=== PATIENT | male | born 1960 | race Caucasian/White ===

== ENCOUNTER 2017-05-30 13:59 | Observation (INO) | payer OTHER ==
[~2017-05-30] VITALS: Ht 185.4 cm; Wt 93.9 kg
[2017-05-30] MEDS ORDERED: HYDROmorphone 2 MG/ML, 1ML ONE ×2 (15:40→18:44)
[2017-05-30] MEDS ORDERED: ONDANSETRON 2MG/ML, 2ML ONE ×2 (15:40→19:05)
[2017-05-30] MEDS: HYDROmorphone 1 MG/ML, 1ML IVPush PRN ×2 (15:48→18:47)
[2017-05-30] MEDS ORDERED: SODIUM CHLORIDE 0.9% 1,000ML IVBOLUS ONE (16:00)
[2017-05-30] MEDS ORDERED: ONDANSETRON 2MG/ML, 2ML IVPush ONE (16:00)
[2017-05-30] MEDS ORDERED: SODIUM CHLORIDE FLUSH 10ML SYR IVF ONE (16:00)
[2017-05-30 16:10] LABS: HEMATOCRIT 51.5 % (39.2-51.8); HEMOGLOBIN 17.4 g/dL (13.7-18.0); WHITE BLOOD COUNT 12.3 x10^3/uL (3.4-10)
[2017-05-30 16:20] LABS: ASPARTATE AMINO TRANSFERASE 26 U/L (15-37); BLOOD UREA NITROGEN 9 mg/dL (7-18)
[2017-05-30] MEDS ORDERED: OMNIPAQUE 350 MG/ML, 100ML BOTTLE ONE (16:42)
[2017-05-30] MEDS ORDERED: CEFOTETAN PMX 1GM/50ML 50 ML ONE (18:04)
[2017-05-30] MEDS ORDERED: PRAM0.12 PO (18:18)
[2017-05-30] MEDS ORDERED: CEFOTETAN PMX 1GM/50ML 50 ML IV ONE (19:00)
[2017-05-30] MEDS ORDERED: MIDAZOLAM 1 MG/ML, 2ML ONE (19:00)
[2017-05-30] MEDS ORDERED: FENTANYL PF 250 MCG/5ML ONE (19:00)
[2017-05-30] MEDS ORDERED: CEFAZOLIN 1,000 MG ONE (19:05)
[2017-05-30] MEDS ORDERED: SUCCINYLCHOLINE 20 MG/ML, 10ML ONE (19:05)
[2017-05-30] MEDS ORDERED: PROPOFOL 10 MG/ML, 20ML ONE (19:05)
[2017-05-30] MEDS ORDERED: GLYCOPYRROLATE 0.2MG/1ML, 5ML ONE (19:05)
[2017-05-30] MEDS ORDERED: NEOSTIGMINE 1 MG/ML, 10ML ONE (19:05)
[2017-05-30] MEDS ORDERED: DEXAMETHASONE 4 MG/ML, 1ML ONE (19:05)
[2017-05-30] MEDS ORDERED: ROCURONIUM 10 MG/ML,10ML ONE (19:05)
[2017-05-30] MEDS ORDERED: EPINEPHRINE 1 MG/ML, 1ML ONE (19:20)
[2017-05-30] MEDS ORDERED: BUPIVACAINE/PF 0.5% ONE (19:20)
[2017-05-30] MEDS ORDERED: BUPIVACAINE/PF-EPI 0.5% 1:200K IM ONE (20:22)
[2017-05-30] MEDS ORDERED: KETOROLAC 30 MG/1 ML ONE (20:25)
[2017-05-30] MEDS ORDERED: LORazepam 2 MG/ML, 1ML IVPush PRN (20:30)
[2017-05-30] MEDS ORDERED: LABETALOL 5MG/ML, 20ML IV PRN (20:30)
[2017-05-30] MEDS ORDERED: MIDAZOLAM 1 MG/ML, 2ML IV PRN (20:30)
[2017-05-30] MEDS ORDERED: DIAZEPAM 5 MG/ML, 2ML IVPush PRN (20:30)
[2017-05-30] MEDS ORDERED: MEPERIDINE/PF 25MG/0.5ML IVPush PRN (20:30)
[2017-05-30] MEDS ORDERED: OXYcodone 5 MG/5 ML ORAL.SOL UDC PO PRN (20:30)
[2017-05-30] MEDS ORDERED: HYDROmorphone 1 MG/ML, 1ML IV PRN (20:30)
[2017-05-30] MEDS ORDERED: hydrALAzine 20 MG/ML, 1ML IV PRN (20:30)
[2017-05-30] MEDS ORDERED: ACETAMINOPHEN 325 MG TABLET PO PRN (20:30)
[2017-05-30] MEDS ORDERED: PROMETHAZINE 25 MG/ML, 1ML IV PRN (20:30)
[2017-05-30] MEDS ORDERED: ALBUTEROL/IPRATROPIUM 2.5MG/0.5MG, 3 ML NPPB PRN (20:30)
[2017-05-30] MEDS ORDERED: ONDANSETRON 2MG/ML, 2ML IVPush PRN (20:30)
[2017-05-30] MEDS ORDERED: FENTANYL PF 100 MCG/2ML IV PRN (20:30)
[2017-05-30] MEDS ORDERED: FENTANYL PF 100 MCG/2ML ONE ×2 (20:48→21:16)
[2017-05-30] MEDS ORDERED: MEPERIDINE/PF 50 MG/ML ONE (21:01)
[2017-05-30 22:04] VITALS: BP 90/55
[2017-05-30 22:29] VITALS: BP 90/55
[2017-05-30] MEDS ORDERED: MORPHINE SULFATE 4 MG/ML, 1ML IV PRN (22:30)
[2017-05-30] MEDS: D5%-0.45NACL+KCL 20MEQ 1,000 ML IV SCH (22:59)
[2017-05-30] MEDS ORDERED: ONDANSETRON 2MG/ML, 2ML IV PRN (23:00)
[2017-05-30] MEDS ORDERED: OXYcodone/APAP 5/325MG TABLET PO PRN (23:00)
[2017-05-31 00:33] VITALS: BP 103/62
[2017-05-31 03:56] VITALS: BP 95/61
[2017-05-31 05:38] LABS: HEMATOCRIT 42.2 % (39.2-51.8); HEMOGLOBIN 14.6 g/dL (13.7-18.0); WHITE BLOOD COUNT 10.9 x10^3/uL (3.4-10)
[2017-05-31 05:48] LABS: BLOOD UREA NITROGEN 9 mg/dL (7-18)
[2017-05-31] MEDS ORDERED: OXYC-302 PO (07:23)
[2017-05-31 07:40] VITALS: BP 99/56
[2017-05-31] MEDS: D5%-0.45NACL+KCL 20MEQ 1,000 ML IV SCH (08:30)
== END 2017-05-31 08:56 | disposition home or self-care (01) ==
LOC: ED 16:57 → EDIP 17:57 → 4NOR 21:50
PROVIDERS: ADMIT Surgery; ATTEND Surgery
DX: K35.80 Unspecified acute appendicitis (principal); G25.81 Restless legs syndrome; K52.9 Noninfective gastroenteritis and colitis, unspecified; K66.8 Other specified disorders of peritoneum; N20.0 Calculus of kidney
CPT/HCPCS: 36415; 44970; 74174; 80048; 80053; 81003; 83690; 85025; 88304; 96365; 96375; 96376; 99285; G0378; J0171; J0330; J0690; J1100; J1170; J1885; J2175; J2250; J2405; J2704; J2710; J3010; J3480; J3490; J7030; Q9967; S0074

== ENCOUNTER → 2018-02-21 | Outpatient (CLI) | payer OTHER ==
[~2018-02-21] MED LIST: OXYC-302 PO; PRAM0.12 PO
== END | disposition home or self-care (01) ==
LOC: CFH 12:50
PROVIDERS: ATTEND Internal Medicine Cardiovascular Disease
DX: R07.89 Other chest pain (principal); F17.200 Nicotine dependence, unspecified, uncomplicated
CPT/HCPCS: 78452; 93017; A9502

== ENCOUNTER 2019-10-21 08:58 | Emergency (ER) | payer OTHER ==
[~2019-10-21] VITALS: Ht 185.4 cm; Wt 88.5 kg
[2019-10-21 09:45] LABS: BASOPHILS # (AUTO) 0.07 x10^3/uL (0-0.1); BASOPHILS % (AUTO) 1 % (0-1); EOSINOPHILS # (AUTO) 0.11 x10^3/uL (0-0.4); EOSINOPHILS % (AUTO) 1 % (1-7); LYMPHOCYTES # (AUTO) 1.24 x10^3/uL (1-3.4); LYMPHOCYTES % (AUTO) 12 % (22-44); MD NO; MEAN CORPUSCULAR HEMOGLOBIN 31.2 pg (27.5-34.5); MEAN CORPUSCULAR HGB CONC 34.2 g/dL (33.2-36.2); MEAN CORPUSCULAR VOLUME 91.3 fL (81-97); MONOCYTES # (AUTO) 0.44 x10^3/uL (0.2-0.8); MONOCYTES % (AUTO) 4 % (2-9); NEUTROPHILS # (AUTO) 8.45 x10^3/uL (1.8-6.8); NEUTROPHILS % (AUTO) 82 % (42-75); PLATELET COUNT 372 x10^3/uL (130-400); RED CELL DISTRIBUTION WIDTH 13.2 % (9.4-14.8)
[2019-10-21 09:56] LABS: ALANINE AMINOTRANSFERASE 28 U/L (12-78); ALBUMIN 3.8 g/dL (3.4-5.0)
[2019-10-21 09:59] LABS: ALKALINE PHOSPHATASE 79 U/L (45-117); BILIRUBIN,TOTAL 0.3 mg/dL (0.2-1.0); CREATININE 1.02 mg/dL (0.7-1.3); TOTAL PROTEIN 7.7 g/dL (6.4-8.2)
[2019-10-21 10:13] LABS: CULTURE INDICATED? YES; MICROSCOPIC INDICATED
[2019-10-21 10:26] LABS: ANION GAP 7 mmol/L (5-15); CHLORIDE 107 mmol/L (98-107)
--- NOTE | 2019-10-21 10:47 | NUR ---
PRERNA SANTOS NOTIFIED PT'S POST VOID RESIDUAL IS [id number], EDPA INSTRUCTED RN TO INSERT CAI CATH. CAI CATH PLACED WITH 14F COUDE TIP. PT TOLERATED WELL, CONCENTRATED URINE EMPTYING FREELY VIA CAI CATH AT THIS TIME. PT REPORTED LEFT LOWER ABD PAIN PRIOR TO CAI INSERTION, UPON INSPECTION THERE IS A LOCALIZED RASH TO THIS AREA. PRERNA SANTOS NOTIFIED. PRERNA TO EVALUATE. PT AWAITING CT AND DISPO AT THIS TIME.
--- NOTE | 2019-10-21 11:10 | NUR ---
PT TO CT.
[2019-10-21] MEDS ORDERED: ONDANSETRON ODT 4 MG PO STA (11:28)
[2019-10-21] MEDS ORDERED: ONDANSETRON ODT 4 MG ONE (11:30)
[2019-10-21] MEDS ORDERED: HYDROmorphone 2 MG/ML, 1ML IM PRN (11:30)
[2019-10-21] MEDS ORDERED: HYDROmorphone 1 MG/ML, 1ML INJ ONE (11:31)
--- NOTE | 2019-10-21 11:35 | NUR ---
PT SEEN AND EXAMINED BY EDMD LEROY RASH TO ABDOMEN HAS RESOLVED. ABD ASSESSED BY MD, PER MD NOT SUSPICIOUS FOR INFECTIOUS PROCESS. PT INFORMED MD AND RN THAT HE HAS BURNING PAIN AT OPENING OF URETHRA SINCE CAI INSERTION. NO DRAINAGE NOTED FROM URETHRA, NO CLOTS/BLOOD NOTED IN CAI TUBING/COLLECTION BAG. INSERTION OF CAI WAS NOT DIFFICULT OR PROLONGED. DILAUDID ORDERED AND ADMIN PER EMAR FOR PT C/O URETHRAL PAIN. PT A&O, RESPS EVEN AND UNLABORED, BP AND SPO2 MONITORS IN PLACE. PT AWAITING CT RESULTS AND DISPO.
--- NOTE | 2019-10-21 11:45 | NUR ---
ZAKI REQUESTED FROM PHARMACY IT IS NOT IN ED OMNICE.
[2019-10-21] MEDS ORDERED: ONDANSETRON ODT 4 MG PO ONE (12:00)
[2019-10-21] MEDS ORDERED: TOLTERODINE LA 4MG CAP.ER.24H PO ONE (12:00)
[2019-10-21] MEDS ORDERED: HYDROmorphone 1 MG/ML, 1ML INJ IM PRN (12:00)
--- NOTE | 2019-10-21 12:00 | NUR ---
REPORT GIVEN TO CEM GAMBLE AT BEDSIDE. PT A&O, RESPS EVEN AND UNLABORED, REPORTS URETHRAL PAIN REMAINS AT 6/10.
[2019-10-21 13:11] VITALS: BP 122/79
--- NOTE | 2019-10-21 13:11 | NUR ---
CHANGED CAI TO LEG BAG. EXPLAINED AND DEMONSTRATED HOW TO DRAIN. DISCUSSED RX AND DC FOLLOW UP INFORMATION. PT TOLERATED PROCEDURE WELL AND VERBALIZED UNDERSTANDING.
== END 2019-10-21 13:18 | disposition home or self-care (01) ==
LOC: ED 09:19
DX: N30.00 Acute cystitis without hematuria (principal); N40.1 Benign prostatic hyperplasia with lower urinary tract symptoms; R33.8 Other retention of urine; M54.5 Low back pain; R30.0 Dysuria; F17.200 Nicotine dependence, unspecified, uncomplicated
CPT/HCPCS: 36415; 51702; 74176; 80053; 81001; 85025; 87086; 96372; 99285; J1170; Q0162

== ENCOUNTER 2019-10-24 16:13 | Emergency (ER) | payer OTHER ==
[~2019-10-24] VITALS: Ht 185.4 cm; Wt 86.9 kg
--- NOTE | 2019-10-24 16:40 | NUR ---
THIS IS A 59 YO M W/ C/O URINARY RETENTION AND PAIN. PT REPORTS HE HAD A CAI CATHETER PLACED HERE ON SUNDAY, FOLLOWED UP W/ UROLOGY TODAY WHERE IT WAS REMOVED AND PT HAS BEEN RETAINING AGAIN. PT BLADDDER DISTENDED. BLADDER SCAN 520ML. PT RESTING ON GURNEY W/ CALL LIGHT IN REACH AND FAMILY AT BEDSIDE. ABELARDO KING. AWAITING ED EVAL.
--- NOTE | 2019-10-24 17:12 | NUR ---
PT RESTING ON GURNEY W/ FAMILY AT BEDSIDE AND CALL LIGHT IN REACH, VSS. AWAITING ED EVAL.
--- NOTE | 2019-10-24 18:05 | NUR ---
PT RESTING ON GURNEY W/ FAMILY AT BEDSIDE AND CALL LIGHT IN REACH, VSS. AWAITING ED EVAL.
[2019-10-24 18:36] VITALS: BP 155/98
[2019-10-24 18:52] LABS: MICROSCOPIC AUTO
[2019-10-24 18:56] LABS: CULTURE INDICATED? YES
--- NOTE | 2019-10-24 19:40 | NUR ---
Patient given discharge instructions and they have confirmed that they understand the instructions. Patient ambulatory with steady gait.
== END 2019-10-24 19:45 | disposition home or self-care (01) ==
LOC: ED 18:30
DX: N40.1 Benign prostatic hyperplasia with lower urinary tract symptoms (principal); R33.8 Other retention of urine; F17.200 Nicotine dependence, unspecified, uncomplicated
CPT/HCPCS: 51702; 81001; 87086; 99284

== ENCOUNTER → 2020-07-30 | Outpatient (CLI) | payer OTHER ==
[~2020-07-30] MED LIST changes: +GADOTERATE 10 MMOL/20 ML VIAL ONE; -OXYC-302 PO; +OXYC1TAB14 PO
== END | disposition home or self-care (01) ==
LOC: RAD 11:20
PROVIDERS: ATTEND Physician Assistant
DX: D18.09 Hemangioma of other sites (principal); R42 Dizziness and giddiness; E78.5 Hyperlipidemia, unspecified; R26.89 Other abnormalities of gait and mobility; F17.210 Nicotine dependence, cigarettes, uncomplicated
CPT/HCPCS: 70553; A9575